=== PATIENT | female | born 1955 | race Caucasian/White ===

== ENCOUNTER → 2017-01-18 | Outpatient (CLI) | payer BC ==
[~2017-01-18] MED LIST: CALC500C70 PO; MULTCHW PO; [UNRECOGNIZED DRUG - CODE] PO
[2017-01-18 10:38] LABS: BASO % 0.8 %; BASO ABS # 0.04 K/uL (0-0.2); COMPLETE YES; EOS % 2.5 %; HEMATOCRIT 38.1 % (37-47); IG% 0.2 %; LYMPH % 29.5 %; LYMPH ABS # 1.44 K/uL (1.2-3.4); MEAN CELL VOLUME 86.8 fL (80-100); MEAN CORPUSCULAR HEMOGLOBIN 28.7 pg (25-34); MEAN CORPUSCULAR HGB CONC 33.1 g/dl (32-36); MONO % 8.2 %; NEUT % 58.8 %; PLATELET COUNT 205 K/uL (130-400); RED BLOOD COUNT 4.39 M/uL (4.2-5.4); WHITE BLOOD COUNT 4.88 K/uL (4.8-10.8)
[2017-01-18 10:45] LABS: ALT/SGPT 36 U/L (12-78); AST/SGOT 21 U/L (15-37); BLOOD UREA NITROGEN 16 mg/dl (7-18); BUN/CREATININE RATIO 23.8 (10-20); CALCIUM 8.3 mg/dl (8.5-10.1); CARBON DIOXIDE 27 mmol/L (21-32); CHLORIDE 108 mmol/L (98-107); CREATININE 0.67 mg/dl (0.60-1.20); GLUCOSE 91 mg/dl (70-99); POTASSIUM 4.2 mmol/L (3.5-5.1); SODIUM 140 mmol/L (136-145)
[2017-01-18 10:56] LABS: ALB/GLOB RATIO 0.9 (0.9-2); ALKALINE PHOSPHATASE 72 U/L (45-117); CHOLESTEROL 171 mg/dl (0-200); CHOLESTEROL/HDL RATIO 3.2; HDL CHOLESTEROL 53 mg/dl; LDL CHOLESTEROL CALCULATED 104 mg/dl; TRIGLYCERIDES 70 mg/dl (0-150); VERY LOW DENSITY LIPOPROT CALC 14 mg/dl
== END | disposition home or self-care (01) ==
LOC: C.LAB1850 09:25
PROVIDERS: ATTEND Internal Medicine Pulmonary Disease
DX: E78.5 Hyperlipidemia, unspecified (principal); I10 Essential (primary) hypertension; E03.9 Hypothyroidism, unspecified

== ENCOUNTER → 2017-02-06 | Outpatient (CLI) | payer BC ==
--- NOTE | 2017-02-07 07:42 | MAMMOGRAPHY REPORT ---
BILATERAL DIGITAL SCREENING MAMMOGRAM TOMOSYNTHESIS WITH CAD: 02/06/2017 CLINICAL HISTORY: Routine screening. Patient has no complaints. TECHNIQUE: Breast tomosynthesis in addition to standard 2D mammography was performed. Current study was also evaluated with a Computer Aided Detection (CAD) system. COMPARISON: Comparison is made to exams dated: 01/29/2016 mammogram, 01/19/2015 mammogram, 01/16/2014 mammogram, 01/08/2013 mammogram, 01/05/2012 mammogram, and 01/03/2011 mammogram - [facility]. BREAST COMPOSITION: The tissue of both breasts is heterogeneously dense, which may obscure small mas ses. FINDINGS: The parenchymal pattern is similar to prior mammograms. No suspicious mass, architectural distortion or cluster of microcalcifications is seen. IMPRESSION: ACR BI-RADS CATEGORY 1: NEGATIVE There is no mammographic evidence of malignancy. A 1 year screening mammogram is recommended. The pa tient will receive written notification of the results. Approximately 10% of breast cancers are not detected with mammography. A negative mammographic report should not delay biopsy if a clinically suggestive mass is present. Denisse Iyer M.D. ay/:02/06/2017 16:36:50 Welder Operator: Vannessa NIETO(Trang)(Adal)(BD), [facility] letter sent: Normal 1/2 BI-RADS Code: ACR BI-RADS Category 1: Negative
== END | disposition home or self-care (01) ==
LOC: C.MAMM 08:36
PROVIDERS: ATTEND Obstetrics & Gynecology
DX: Z12.31 Encounter for screening mammogram for malignant neoplasm of breast (principal)

== ENCOUNTER → 2017-02-06 | Outpatient (CLI) | payer BC | END | disposition home or self-care (01) | LOC: C.PAPS 11:54 | PROVIDERS: ATTEND Obstetrics & Gynecology | DX: Z01.419 Encounter for gynecological examination (general) (routine) without abnormal findings (principal) ==

== ENCOUNTER 2018-11-21 01:33 | Inpatient (IN) ==
[2018-11-21 02:01] LABS: Basophils # (auto) 0.04 K/uL (0-0.2); Basophils % (auto) 0.5 %; Eosinophils # (auto) 0.13 K/uL (0-0.5); Eosinophils % (auto) 1.8 %; Hematocrit (blood only) 35.6 % (37-47); Hemoglobin 12.5 g/dL (12.0-16.0); Immature Granulocytes # (auto) 0.01 K/uL (0.00-0.02); Immature Granulocytes % (auto) 0.1 %; Lymphocytes # (auto) 2.92 K/uL (1.2-3.4); Lymphocytes % (auto) 39.7 %; Mean Corpuscular Hemoglobin 29.1 pg (25-34); Mean Corpuscular Hgb Conc 35.1 g/dL (32-36); Mean Corpuscular Volume 82.8 fL (80-100); Mean Platelet Volume 9.6 fL (7.4-10.4); Monocytes # (auto) 0.66 K/uL (0.11-0.59); Neutrophils % (auto) 48.9 %; Platelet Count 333 K/uL (130-400); RDW Coefficient of Variation 13.7 % (11.5-14.5); RDW Standard Deviation 41.4 fL (36.4-46.3); White Blood Count 7.36 K/uL (4.8-10.8)
[2018-11-21 02:09] LABS: Alanine Aminotransferase 45 U/L (12-78); Albumin Level 3.8 gm/dl (3.4-5.0); Aspartate Aminotransferase 35 U/L (15-37); BUN Creatinine Ratio 17.2 (10-20); Blood Urea Nitrogen 11 mg/dl (7-18); Calcium 8.3 mg/dl (8.5-10.1); Carbon Dioxide 29 mmol/L (21-32); Chloride 94 mmol/L (98-107); Creatinine Clr Calc Pharmacy 56.7 ml/min; Est GFR (African American) 107.4; Est GFR (Non-African American) 92.7; Glucose 123 mg/dl (70-99); Potassium 3.6 mmol/L (3.5-5.1); Sodium 131 mmol/L (136-145)
--- NOTE | 2018-11-21 02:09 | Emergency Department Note ---
History of Present Illness General Chief complaint: Chest Pain Stated complaint: CHEST PAIN Source: patient Mode of arrival: ambulatory Limitations: no limitations History of Present Illness Maximum Pain Intensity: 3 This patient is a 63-year-old female who presents to the emergency department ambulatory complaining of chest pain. Patient states that she was watching TV 3 hours prior to arrival and started feeling a pressure in the center of her chest. She states it became worse and was persistent. She reports associated nausea and diaphoresis. She did not vomit. She states the pain was rated a 9/10. She states that her pain was somewhat worse with walking to the bathroom. She was given 3 nitroglycerin by EMS and 4 baby aspirin which improved her pain significantly. She states that she is symptom-free at this time. She denies any cardiac history and states she did have a stress test several years ago which was negative. She was recently started on medication for hypertension. She does report a family history of cardiac disease in her grandfather. Patient is not a smoker and exercises regularly. Home Medications Home Medications Medication Instructions Recorded Confirmed Type calcium citrate 250 mg 1 tab PO .take one po daily tab 10/26/18 11/21/18 History calcium-vitamin D3 200 unit tablet indapamide 1.25 mg tablet 1.25 mg PO DAILY #30 tab 10/26/18 11/21/18 History multivitamin tablet 1 tab PO DAILY 10/26/18 11/21/18 History Allergies Allergy/AdvReac Type Severity Reaction Status Date / Time Penicillins Allergy Intermediate RASH Verified 11/21/18 02:04 Past Med/Surg History Medical History Hypertension Surgical History History of colonoscopy History of cystoscopy with pyeloscopy History of hand surgery shaving of lesion Family History Other Colon cancer Heart disease Social History Preferred Language: Pashto Communication Ability: Effective Paranormal Investigator Required: No Beliefs That Will Affect Care: None Current Living Situation: Spouse Feels Safe at Home: Yes Smoking Status: Never smoker Second Hand Exposure: No ; Hx Alcohol Use: No Hx Substance Use: No Review of Systems A total of 10 systems reviewed and were otherwise negative Physical Exam Vital Signs Vital Signs - 24 hr 11/21/18 01:33 11/21/18 01:38 11/21/18 01:48 Temperature 36.7 C Temperature Source Oral Sepsis Recent Fever Within 48 Hours No Sepsis New/Unexplained Change in Mental Status No Sepsis Action Taken by Nursing No Action Required Pulse Rate 72 70 70 Pulse Rate from SpO2 Sensor 69 73 Pulse Rhythm Regular Pulse Strength Normal Respiratory Rate 17 13 15 Respiratory Effort / Characteristics Non-Labored Respiratory Depth Normal Respiratory Pattern Regular Blood Pressure 144/94 H 144/94 H Blood Pressure Mean 110 110 Blood Pressure Position Lying Pulse Oximetry 99 97 95 Oxygen Delivery Method Room Air 11/21/18 02:00 11/21/18 02:30 Temperature Temperature Source Sepsis Recent Fever Within 48 Hours Sepsis New/Unexplained Change in Mental Status Sepsis Action Taken by Nursing Pulse Rate 68 77 Pulse Rate from SpO2 Sensor 69 75 Pulse Rhythm Pulse Strength Respiratory Rate 16 11 L Respiratory Effort / Characteristics Respiratory Depth Respiratory Pattern Blood Pressure 134/87 136/89 Blood Pressure Mean 102 104 Blood Pressure Position Pulse Oximetry 97 99 Oxygen Delivery Method VITALS: Vitals are noted on the nurse's note and reviewed by myself. Vital signs stable. GENERAL: This is a 63-year-old female, in no acute distress, nondiaphoretic, well-developed well-nourished. SKIN: The skin was without rashes, erythema, edema, or bruising. HEAD: Normocephalic atraumatic. EARS: External auditory canals clear, tympanic membranes pearly de souza without erythema or effusion bilaterally. EYES: Pupils equal round and reactive to light and accommodation. MOUTH: Mucous membranes moist. Tonsils are not enlarged. Pharynx without erythema or exudate. NECK: Supple without nuchal rigidity. No lymphadenopathy. HEART: Regular rate and rhythm without murmurs gallops or rubs. LUNGS: Clear to auscultation bilaterally without wheezes, rales or rhonchi. No retractions or accessory muscle use. EXTREMITIES: No peripheral edema. NEURO: Patient was alert and oriented to person place and time. Course Consultations Consultation #1: Dr. Isaac Carreon [facility] hospitalist Administered Medications Discontinued Medications Nitroglycerin (Nitrostat) 0.4 mg SL NOW STA Stop: 11/21/18 02:56 Last Admin: 11/21/18 03:07 Dose: 0.4 mg Documented by: [id number] Medical Decision Making Differential Diagnosis Differential diagnosis includes acute coronary syndrome, pulmonary embolism, pneumothorax, pericarditis, myocarditis, endocarditis, anxiety, musculoskeletal pain, GERD, costochondritis, pneumonia, among others. Home Medications Current Medication List: was personally reviewed by me Laboratory Data Attestation: I reviewed the patient's lab results. Result diagrams: 11/21/18 01:39 11/21/18 01:39 Lab Results 11/21/18 11/21/18 11/21/18 Range/Units 01:39 01:39 02:00 WBC 7.36 (4.8-10.8) K/uL RBC 4.30 (4.2-5.4) M/uL Hgb 12.5 (12.0-16.0) g/dL Hct 35.6 L (37-47) % MCV 82.8 (80-100) fL MCH 29.1 (25-34) pg MCHC 35.1 (32-36) g/dL RDW Std Deviation 41.4 (36.4-46.3) fL RDW Coeff of Stephen 13.7 (11.5-14.5) % Plt Count 333 (130-400) K/uL MPV 9.6 (7.4-10.4) fL Immature Gran % (Auto) 0.1 % Neut % (Auto) 48.9 % Lymph % (Auto) 39.7 % [place] % (Auto) 9.0 % Eos % (Auto) 1.8 % Baso % (Auto) 0.5 % Immature Gran # (Auto) 0.01 (0.00-0.02) K/uL Neut # (Auto) 3.60 (1.4-6.5) K/uL Lymph # (Auto) 2.92 (1.2-3.4) K/uL [place] # (Auto) 0.66 H (0.11-0.59) K/uL Eos # (Auto) 0.13 (0-0.5) K/uL Baso # (Auto) 0.04 (0-0.2) K/uL Sodium 131 L (136-145) mmol/L Potassium 3.6 (3.5-5.1) mmol/L Chloride 94 L (98-107) mmol/L Carbon Dioxide 29 (21-32) mmol/L Anion Gap 8.0 (3-11) BUN 11 (7-18) mg/dl Creatinine 0.66 (0.6-1.2) mg/dl Est Cr Clr Drug Dosing 56.7 ml/min Est GFR ( Amer) 107.4 Est GFR (Non-Af Amer) 92.7 BUN/Creatinine Ratio 17.2 (10-20) Glucose 123 H (70-99) mg/dl Calcium 8.3 L (8.5-10.1) mg/dl Total Bilirubin 0.3 (0.2-1) mg/dl AST 35 (15-37) U/L ALT 45 (12-78) U/L Alkaline Phosphatase 79 (45-117) U/L POC Troponin I < 0.03 (0-0.045) ng/ml Troponin I < 0.015 (0-0.045) ng/ml Total Protein 7.7 (6.4-8.2) gm/dl Albumin 3.8 (3.4-5.0) gm/dl Globulin 3.9 (2.5-4.0) gm/dl Albumin/Globulin Ratio 1.0 (0.9-2) Imaging Data Attestation: I personally reviewed and interpreted this imaging study as follows: My Impression: CHEST X-RAY: No pneumothorax or pulmonary infiltrates. No cardiomegaly. ECG Data Attestation: I personally reviewed and interpreted this ECG as follows: Indication: chest pain Rate (beats per minute): 71 Rhythm: normal sinus Findings: + nonspecific-ST abn (Lateral) Comparison ECG Date: from (09/13/10) Change: the following changes noted (nonspecific ST changes now noted) Blood Pressure Blood Pressure Findings: Elevated blood pressure Blood Pressure Disposition: further management by hospitalist [facility] Narrative The patient is a 63-year-old female who presents today complaining of chest pain. Patient had an episode of chest pressure, diaphoresis and nausea. Symptoms resolved with nitroglycerin. Labs revealed no leukocytosis, anemia or concerning electrolyte abnormalities. Initial troponin negative. Chest x-ray unremarkable. Patient's HEART score calculated at a 5, moderate risk for MACE. Patient agreeable to admission/observation for further evaluation. [facility] hospitalist service consulted to evaluate the patient. The patient was independently evaluated by Dr. Brown, who agreed with my assessment and treatment plan. Impression & Plan Substernal chest pain Discharge Plan Visit Data *Final* Discharge Date/Time: 11/21/18 04:30 Chief Complaint: Chest Pain Stated Complaint: CHEST PAIN ED Provider: Angeles Brown ED Midlevel Provider: Gail Beauchamp Discharge Problem: Substernal chest pain Patient Disposition: Admitted As Inpatient Discharge Instructions Interventions: ED Discharge Assessment Last Done: 11/21/18 04:30
[2018-11-21 02:14] LABS: Alkaline Phosphatase 79 U/L (45-117); Bilirubin,Total 0.3 mg/dl (0.2-1); Globulin 3.9 gm/dl (2.5-4.0); Total Protein 7.7 gm/dl (6.4-8.2); Troponin I < 0.015 ng/ml (0-0.045)
[2018-11-21] MEDS ORDERED: NITROGLYCERIN SL 0.4 MG/TAB TAB SL STA (02:55)
--- NOTE | 2018-11-21 03:05 | History & Physical Report ---
Date of Service November 21, 2018 Assessment & Plan (1) Chest pain: Concerning story of acute onset chest heaviness, worse with exertion and relieved with Nitro. Risk factors include HTN. Troponin x 1 negative. [address]KG with subtle ST flattening V4-V6. Patient with CP 3/10 at present and some n ausea -Observation to medical floor with telemetry -Trend troponin q 8 hours x 3 sets -Check 2D echo -Nitroglycerine, morphine PRN -Zofran PRN -Repeat EKG -If elevated troponin on next draw would consider initiating heparin gtt and calling Cardiology consult Present on Admission?: Yes (2) Hypertension: Well controlled -Continue Indapamide F/E/N - Heplock. Electrolytes WNL. Heart healthy diet for now Ppx - Lovenox Code -Full Dispo - Obs to medical floor with telemetry Present on Admission?: Yes History of Present Illness Chief Complaint: chest pain Primary Care Provider: Donavan Peacock MD Tressa Rascon is a 63yo C female with history of well controlled HTN presenting with chest pain. She developed acute onset of substernal chest heaviness this evening while sitting on the couch. Pain 9/10 in severity at its worst. Associated with nausea, restlessness and diaphoresis. Non-radiating/non-pleuritic but did become worse when she walked around. EMS called - Nitro given with improvement in CP to 3/10. No history of prior No known history of CAD or AR. Had a stress test years ago which was negative. ER Course: Nitroglycerine Allergies Allergy/AdvReac Type Severity Reaction Status Date / Time Penicillins Allergy Intermediate RASH Verified 11/21/18 02:04 Home Medications Home Medications Medication Instructions Recorded Confirmed Type calcium citrate 250 mg 1 tab PO .take one po daily tab 10/26/18 11/21/18 History calcium-vitamin D3 200 unit tablet indapamide 1.25 mg tablet 1.25 mg PO DAILY #30 tab 10/26/18 11/21/18 History multivitamin tablet 1 tab PO DAILY 10/26/18 11/21/18 History Past Med/Surg History Medical History Hypertension Surgical History History of colonoscopy History of cystoscopy with pyeloscopy History of hand surgery shaving of lesion Family History Other Colon cancer Heart disease Social History Preferred Language: Burkinan Feels Safe at Home: Yes Smoking Status: Never smoker Review of Systems Review of Systems: All systems reviewed & are unremarkable except as noted in HPI & below +Nausea Physical Exam Physical Exam: General: patient resting comfortably, NAD, non-toxic in appearance, AA&O x 4, anxious Skin: warm, dry, intact, no rashes or lesions HEENT: NC/AT, PERRL, EOMI, anicteric sclera, conjunctiva without injection, external ear normal to inspection and nontender, nares patent, moist mucus membranes, dentition intact, no oropharyngeal lesions, neck supple, trachea midline, no LAD, no thyromegaly, no JVD Heart: +S1/S2, regular, no m/r/g, +Chest wall pain with palpation Lungs: equal air entry bilaterally, no rales/rhonchi/wheezes Abd: +BS, soft, NT/ND, no masses/organomegaly/ascites Ext: warm, 2+ pulses in UE/LE bilaterally, no clubbing/cyanosis or edema Neuro: nonfocal, patient AA&O x 4, speech intact, no facial droop, moving all extremities on command with equal strength 5/5 Results & Data Vital Signs (Past 12 Hours) Vital Signs Temp Pulse Resp BP Pulse Ox 11/21/18 02:30 77 11 L 136/89 99 11/21/18 02:00 68 16 134/87 97 11/21/18 01:48 70 15 95 11/21/18 01:38 70 13 144/94 H 97 11/21/18 01:33 36.7 C 72 17 144/94 H 99 Laboratory Results Lab Results 11/21/18 11/21/18 11/21/18 Range/Units 01:39 01:39 02:00 WBC 7.36 (4.8-10.8) K/uL RBC 4.30 (4.2-5.4) M/uL Hgb 12.5 (12.0-16.0) g/dL Hct 35.6 L (37-47) % MCV 82.8 (80-100) fL MCH 29.1 (25-34) pg MCHC 35.1 (32-36) g/dL RDW Std Deviation 41.4 (36.4-46.3) fL RDW Coeff of Stephen 13.7 (11.5-14.5) % Plt Count 333 (130-400) K/uL MPV 9.6 (7.4-10.4) fL Immature Gran % (Auto) 0.1 % Neut % (Auto) 48.9 % Lymph % (Auto) 39.7 % [place] % (Auto) 9.0 % Eos % (Auto) 1.8 % Baso % (Auto) 0.5 % Immature Gran # (Auto) 0.01 (0.00-0.02) K/uL Neut # (Auto) 3.60 (1.4-6.5) K/uL Lymph # (Auto) 2.92 (1.2-3.4) K/uL [place] # (Auto) 0.66 H (0.11-0.59) K/uL Eos # (Auto) 0.13 (0-0.5) K/uL Baso # (Auto) 0.04 (0-0.2) K/uL Sodium 131 L (136-145) mmol/L Potassium 3.6 (3.5-5.1) mmol/L Chloride 94 L (98-107) mmol/L Carbon Dioxide 29 (21-32) mmol/L Anion Gap 8.0 (3-11) BUN 11 (7-18) mg/dl Creatinine 0.66 (0.6-1.2) mg/dl Est Cr Clr Drug Dosing 56.7 ml/min Est GFR ( Amer) 107.4 Est GFR (Non-Af Amer) 92.7 BUN/Creatinine Ratio 17.2 (10-20) Glucose 123 H (70-99) mg/dl Calcium 8.3 L (8.5-10.1) mg/dl Total Bilirubin 0.3 (0.2-1) mg/dl AST 35 (15-37) U/L ALT 45 (12-78) U/L Alkaline Phosphatase 79 (45-117) U/L POC Troponin I < 0.03 (0-0.045) ng/ml Troponin I < 0.015 (0-0.045) ng/ml Total Protein 7.7 (6.4-8.2) gm/dl Albumin 3.8 (3.4-5.0) gm/dl Globulin 3.9 (2.5-4.0) gm/dl Albumin/Globulin Ratio 1.0 (0.9-2) Diagnostic Findings CXR with NAD ECG Additional Comments: EKG with NSR at 71, normal axis, KA=615, QRS=86, AEr=654, ST changes mild in V4-V6, I Code Status & VTE Plan Code Status FULL VTE Prophylaxis Plan VTE Prophylaxis will be ordered: Yes PG Care Time/CCT Total # of Minutes Spent Total Time Spent with Patient: Total time spent is greater than 50% in coordination of care (as documented) at patient's floor/unit and/or counseling patient: (1) Chest pain Chest pain type: unspecified Qualified Code(s): R07.9 - Chest pain, unspecified (2) Hypertension Hypertension type: essential hypertension Qualified Code(s): I10 - Essential (primary) hypertension
--- NOTE | 2018-11-21 03:36 | Emergency Department Note ---
ED Visit Note Patient seen and evaluated at bedside after discussion with the physician certified pathology assistant. Please refer to her note for additional details. Discussed with patient concern for potential cardiac etiology given symptoms and risk factors. Patient does relay family history in both grandfathers of cardiac etiology including sudden cardiac following heart attack in the early 60s. Patient has been concerned due to increased stress that she is taking care of her own mother. Discussed with them concerned due to EKG changes also. Patient is aware of all results, currently has no symptoms, and is in agreement with plan. .
[2018-11-21] MEDS ORDERED: NITROGLYCERIN SL 0.4 MG/TAB TAB SL PRN (05:01)
[2018-11-21] MEDS ORDERED: MoRPHine SULFATE 2 MG/ML CARP IV PRN (05:01)
[2018-11-21] MEDS ORDERED: ENOXAPARIN INJ 40 MG/0.4 ML SYR SQ SCH (05:01)
[2018-11-21] MEDS ORDERED: ONDANSETRON INJ 2 MG/ML 2 ML VIAL IV PRN ×2 (05:01→17:07)
[2018-11-21 05:44] LABS: Prothrombin Time 10.5 Seconds (9.0-12.0)
--- NOTE | 2018-11-21 07:03 | XRay Report ---
XR chest 1V portable CLINICAL HISTORY: Chest Pain dyspnea COMPARISON STUDY: No previous studies for comparison. FINDINGS: Platelike atelectasis left base. Lungs otherwise appear clear. Diaphragms are smooth. No si gnificant cardiac enlargement. IMPRESSION: Platelike atelectasis left base. Otherwise negative study. The above report was generated using voice recognition software. It may contain grammatical, syntax or spelling errors. Electronically signed by: Davidson Nguyen M.D. 11/21/2018 7:02 AM
[2018-11-21] MEDS: ACETAMINOPHEN 325 MG TAB PO PRN (07:29)
[2018-11-21] MEDS ORDERED: INDAPAMIDE 1.25 MG TAB PO SCH (09:00)
--- NOTE | 2018-11-21 12:25 | Family Medicine Progress Note ---
Date of Service November 21, 2018 Assessment & Plan (1) Chest pain: Ms. Rascon is a 63 year old female with a past medical history of hypertension who presented to [facility] emergency department due to acute onset of chest heaviness, associated with diaphoresis and relieved with Nitro. NSTEMI -initial troponin negative, repeat troponin this AM 1.3, continue to trend q8h -cardiology consulted, thank you for assistance with this patient -> tentatively scheduled for cardiac cath later today -chest pain resolved after administration of nitro, pt chest pain free this AM -EKG with non-specific T wave changes in lateral leads -ECHO already completed -> WNL, no RMWA -Nitroglycerin, morphine PRN -fasting lipid panel and HbA1c ordered for AM Hypertension -currently well controlled on home indapamide DVT Prophylaxis: Lovenox Code: Full Disposition: admitted to medical floor with telemetry (2) Hypertension: (3) NSTEMI (non-ST elevated myocardial infarction): Subjective See Dr. Gray's H&P for details on history and physical. Results & Data Vital Signs (Past 12 Hours) Vital Signs Temp Pulse Pulse Resp BP BP Pulse Ox 11/21/18 11:25 37.0 C 79 20 137/71 97 11/21/18 07:56 74 11/21/18 07:13 36.9 C 69 18 138/80 100 11/21/18 05:37 71 11/21/18 05:02 37.1 C 73 16 127/79 98 11/21/18 04:00 75 15 126/82 97 11/21/18 03:55 37.1 C 79 16 127/79 98 11/21/18 03:30 79 19 124/77 95 11/21/18 03:00 71 16 136/86 97 11/21/18 02:30 77 11 L 136/89 99 11/21/18 02:00 68 16 134/87 97 11/21/18 01:48 70 15 95 11/21/18 01:38 70 13 144/94 H 97 11/21/18 01:33 36.7 C 72 17 144/94 H 99 PG Care Time/CCT Total # of Minutes Spent Total Time Spent with Patient: Total time spent is greater than 50% in coordination of care (as documented) at patient's floor/unit and/or counseling patient: Resident Activity Tracking Resident Involvement: Resident Care Provided Care Provided: Adult Hospital Medicine (1) Chest pain Chest pain type: unspecified Qualified Code(s): R07.9 - Chest pain, unspecified (2) Hypertension Hypertension type: essential hypertension Qualified Code(s): I10 - Essential (primary) hypertension
[2018-11-21] MEDS ORDERED: NiCARDipine HCL INJ 2.5 MG/ML 10 ML AMP ONE (14:18)
[2018-11-21] MEDS ORDERED: fentaNYL citrate 100 MCG/2 ML VIAL ONE (14:18)
[2018-11-21] MEDS ORDERED: MIDAZOLAM HCL 1 MG/ML 2ML VIAL ONE ×2 (14:18→16:32)
[2018-11-21] MEDS ORDERED: HEPARIN (PORCINE) 1000 UNIT/ML 10 ML (CATH LAB USE ONLY) ONE (14:18)
[2018-11-21] MEDS ORDERED: NITROGLYCERIN/D5W 100MCG/ML 20ML SYR ONE (14:19)
--- NOTE | 2018-11-21 14:33 | Medical Student Progress Note ---
Date of Service November 21, 2018 Lisseth Bustillos is a 63 y/o F who presented to [facility] ED on November 21 after midnight complaining of substernal chest pressure and pain. She states that she first experienced chest pressure in the afternoon of November 20, which subsided within 30 minutes. Then, around 10:30 PM pn November 20, the sensation of pressure returned and lasted for several hours before Tressa called 911. At this time, Tressa describes the sensation as a constant, heavy pressure in the center of her chest. She denied any pain at the onset, but she states that she slowly developed a dull, non-pleuritic, and non-positional substernal pain without radiation to the shoulder or jaw. She also states that she experienced diaphoresis, and she denied any dyspnea or palpitations. Upon the onset of the dull pain and diaphoresis, Tressa called 911. 0.4 mg Nitroglycerin was administered by EMS, and Tressa endorses relief of her chest pain and pressure following the administration. She also notes that she developed a MORALES soon after administration of nitroglycerin. At [facility] ED, and ECG, CXR, and troponin were ordered. The ECG showed normal sinus rhythm and nonspecific T wave abnormalities in the inferior leads, as well as subtle ST flattening in V4-V6. The CXR did not show any cardiac enlargement, and the lungs were clear bilaterally. The troponin was negative. Tressa was then admitted for further monitoring. An echocardiogram revealed normal systolic and diastolic function, and a repeat troponin revealed a troponin of 1.30. She then had a cardiology consult and underwent a heart catheterization, which revealed a 99% mid RCA occlusion, and a 90% LAD occlusion. Two drug-eluting stents were placed without complications. Ticagrelor and ASA 81 mg dual therapy has been initiated and will be continued for 1 year. Overnight, Tressa became hypotensive (61/40), so she was administered a fluid bolus. She also experienced a 14 beat run of VT and ST changes. This morning, Tressa states that she is feeling very tired and that she slept poorly. She denies any chest pain or pressure, dyspnea, palpitations, abdominal pain, N/V, muscle weakness, dizziness, confusion, or fever. She does endorse a mild MORALES that was relieved with acetaminophen, and she states that she does not have much of an appetite. A repeat echocardiogram has been ordered for this morning. Physical Exam Constitutional: WD/WN, vitals as above no acute distress Respiratory: normal respiratory effort, lungs clear to auscultation Cardiovascular: RRR, no murmur, no edema Vessels: no carotid bruit Extremities: no edema Gastrointestinal (Abdomen): normal bowel sounds, soft, nontender, no hepatosplenomegaly Skin: no rashes, warm and dry Psychiatric: A+Ox3, euthymic affect Results & Data Laboratory Results Troponin: 4.7 (11/21 PM) to 3.84 (11/22 AM) Lipid panel: Total cholesterol-151, LDL-94, HDL-37, TG-102 blood glucose: 96 HbA1c: 5.7% Sodium: 128 Potassium: 3.3 Diagnostic Findings Medications Administered Acetaminophen (Tylenol) 650 mg PO Q4H PRN PRN Reason: pain/fever Stop: 12/21/18 05:00 Last Admin: 11/21/18 07:29 Dose: 650 mg Documented by: [id number] Indapamide (Lozol) 1.25 mg PO DAILY WALDEMAR Stop: 12/21/18 08:59 Last Admin: 11/21/18 07:30 Dose: 1.25 mg Documented by: [id number]
--- NOTE | 2018-11-21 15:02 | Pre Anesthesia Assessment ---
Date of Service November 21, 2018 Pre Sedation Assessment Vital Signs Temp Pulse Pulse Resp BP BP Pulse Ox 11/21/18 11:25 98.6 F 79 20 137/71 97 11/21/18 07:56 74 11/21/18 07:13 98.4 F 69 18 138/80 100 11/21/18 05:37 71 11/21/18 05:02 98.8 F 73 16 127/79 98 11/21/18 04:00 75 15 126/82 97 11/21/18 03:55 98.8 F 79 16 127/79 98 11/21/18 03:30 79 19 124/77 95 11/21/18 03:00 71 16 136/86 97 11/21/18 02:30 77 11 L 136/89 99 11/21/18 02:00 68 16 134/87 97 11/21/18 01:48 70 15 95 11/21/18 01:38 70 13 144/94 H 97 11/21/18 01:33 98.1 F 72 17 144/94 H 99 Cardiovascular RRR, no murmur, no edema Respiratory normal respiratory effort, lungs clear to auscultation Pre-Sedation Airway Assessment Smoking Status: Never smoker Hx Sleep Apnea: No Hx Difficult Intubation: No Short, Thick Neck: No Thyromental Distance: > or= 3.5 Finger Breadths Oral Cavity: + WNL Mallampati Class: III Procedure Planning Contraindications for Sedation: none Current Medications Reviewed: Yes Notes The planned sedation has been discussed with the patient. Informed Consent was obtained. I have identified the patient, determined the appropriateness of sedation and have assessed the patient immediately prior to the procedure. All medicine(s) and interventions are by my order.
--- NOTE | 2018-11-21 15:21 | Cardiology Consultation ---
Date of Consultation November 21, 2018 Assessment & Plan (1) NSTEMI (non-ST elevated myocardial infarction): 2. Hypertension Patient with classic anginal symptoms, EKG changes and elevated troponin consistent with ACS. Recommend further risk stratification with cardiac catheterization. Discussed risk, benefits, alternative procedure with patient and willing to proceed. Plan to perform via right radial artery. Further recommendations pending findings. Thank you for allowing us to participate in the care of this patient. Please contact with any questions. History of Present Illness Attending Physician: Chuyita Blanc MD History of Present Illness Mrs. Rascon is a very pleasant 63-year-old woman with a history of hyper admitted with acute onset chest pain found to have an NSTEMI. Cardiology consult for further management. Patient active at baseline. Was in usual state of health until approximately 1030 last night when started feeling unwell. Approximately an hour later developed chest pressure with associated diaphoresis, nausea. Around 12:30 AM called EMS. Had persistent pain for approximately 6 hours before finally relieved with aspirin, sublingual nitroglycerin. Has been chest pain-free since admission. No real similar symptoms previously. On admission initial EKG and subsequent EKG showed subtle lateral ST changes. Initial troponin was negative. Troponin this a.m. positive at 1.3. Family history: No family history of premature coronary disease. Social history: Denies tobacco, heavy alcohol. 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 one grandchild lives in [place]. Allergies: Penicillin Allergies Allergy/AdvReac Type Severity Reaction Status Date / Time Penicillins Allergy Intermediate RASH Verified 11/21/18 02:04 Home Medications Home Medications Medication Instructions Recorded Confirmed Type calcium citrate 250 mg 1 tab PO .take one po daily tab 10/26/18 11/21/18 History calcium-vitamin D3 200 unit tablet indapamide 1.25 mg tablet 1.25 mg PO DAILY #30 tab 10/26/18 11/21/18 History multivitamin tablet 1 tab PO DAILY 10/26/18 11/21/18 History Patient History Medical History Hypertension Surgical History History of colonoscopy History of cystoscopy with pyeloscopy History of hand surgery shaving of lesion Family History Other Colon cancer Heart disease Social History Preferred Language: Andorran Communication Ability: Effective Administrator Health Care Facility Required: No Beliefs That Will Affect Care: None Current Living Situation: Spouse Feels Safe at Home: Yes Smoking Status: Never smoker Second Hand Exposure: No ; Hx Alcohol Use: No Hx Substance Use: No Review of Systems Review of Systems: All systems reviewed & are unremarkable except as noted in HPI & below Physical Exam Physical Exam: General: Comfortable, no acute distress Eyes: Sclerae anicteric, extraocular movements intact HENT: Oropharynx clear mucous membranes moist Neck: Normal carotid upstrokes, no bruits. No JVD. Lungs: Clear to auscultation bilaterally, no rhonchi or wheezes Cardiac: Regular rate and rhythm, no murmurs, rubs or gallops. Vascular: 2+ radial, DP and PT pulses. No varicosities. Abdomen: Soft, nontender, nondistended, positive bowel sounds. Extremities: Well perfused, no peripheral edema Skin: No rashes or lesions. Neuro: Nonfocal Psych: Alert orient x3, normal affect and mood Results & Data Vital Signs (Past 12 Hours) Vital Signs Temp Pulse Pulse Resp BP BP Pulse Ox 11/21/18 11:25 98.6 F 79 20 137/71 97 11/21/18 07:56 74 11/21/18 07:13 98.4 F 69 18 138/80 100 11/21/18 05:37 71 11/21/18 05:02 98.8 F 73 16 127/79 98 11/21/18 04:00 75 15 126/82 97 11/21/18 03:55 98.8 F 79 16 127/79 98 11/21/18 03:30 79 19 124/77 95 PG Care Time/CCT Total # of Minutes Spent Total Time Spent with Patient: Total time spent is greater than 50% in coordination of care (as documented) at patient's floor/unit and/or counseling patient:
[2018-11-21] MEDS ORDERED: TICAGRELOR 90 MG TAB PO ONE (16:57)
--- NOTE | 2018-11-21 17:14 | Post Anesthesia Assessment ---
Date of Service November 21, 2018 Post Sedation Assessment Vital Signs Temp Pulse Pulse Resp BP BP Pulse Ox 11/21/18 11:25 98.6 F 79 20 137/71 97 11/21/18 07:56 74 11/21/18 07:13 98.4 F 69 18 138/80 100 11/21/18 05:37 71 11/21/18 05:02 98.8 F 73 16 127/79 98 11/21/18 04:00 75 15 126/82 97 11/21/18 03:55 98.8 F 79 16 127/79 98 11/21/18 03:30 79 19 124/77 95 11/21/18 03:00 71 16 136/86 97 11/21/18 02:30 77 11 L 136/89 99 11/21/18 02:00 68 16 134/87 97 11/21/18 01:48 70 15 95 11/21/18 01:38 70 13 144/94 H 97 11/21/18 01:33 98.1 F 72 17 144/94 H 99 Recovery Score Activity: Moves 4 extremities Respiration: Deep Breath/Cough Circulation: +/-20% PreAnes Value Consciousness: Fully Awake Oxygen Saturation: O2 needed for >90% Discharge Sedation Level of Care: Fast Track Phase II Post Sedation Plan On clinical assessment, the patient appears to have tolerated the sedation without complications. Patient is recovering as anticipated. Patient will continue to be monitored by nursing and may be discharged when sedation discharge criteria are met per below protocol. Upon Completions of procedure and additional 15 minutes continue every 5 minute vital signs and the P.A.R. score; then discharge to a Phase I or Fast Track to Phase II per the following guidelines: * Discharge Patient to appropriate Phase II area if PAR is 8 or greater or return to pre- procedure baseline. The post - procedure orders will be as directed. * If PAR score is less than 8 or not return to pre-procedure baseline then patient will follow Phase I monitoring till PAR is reached for Phase II. The Phase I may be done in procedure room or may call to secure a Phase I area. * If naloxone or flumazenil are used for reversal, hold in Phase I for continued monitoring from when last reversal dose was given for a minimum of 60 minutes or longer pending the nurse and/or physician discretion of patient condition before discharge to Phase II. Please call the Sedation Physician to re-evaluate and complete post-note for discharge to Phase II area. Do NOT discharge from procedure sedation or Phase 1 until post- sedation evaluation note is complete by procedure /sedation MD Sedation Discharge Instructions to be given to the patient at discharge to home.
--- NOTE | 2018-11-21 17:16 | Post Operative Brief Note ---
Cardiology Brief Post Op Date of Surgery November 21, 2018 Pre & Post Diagnosis Operation Date: 11/21/18 15:00 <No data on this case meets the specified criteria> Procedure -- Dairy Helper Alexandre Young MD News Intern Thierry Estimated Blood Loss 10 Findings Consistent with Post-Op Diagnosis Severe 2 vessel CAD -99% mid RCA -90% mid LAD at bifurcation of 1st diagonal. Successful PCI of mid RCA with 3.5 x 15 Alvaro DUDLEY (post-dilated with 4.0 NC). Successful PCI of proximal to mid LAD with 2.75 x 22 Alvaro DUDLEY (post-dilated with 3.5 NC) - POBA to ostium of 1st Diagonal Complications none Disposition Disposition: PCU
[2018-11-21] MEDS: SODIUM CHLORIDE 0.9% 1000ML 1,000 ML IV SCH ×2 (17:26→23:00)
[2018-11-21] MEDS ORDERED: SODIUM CHLORIDE 0.9% 1000ML 500 ML IV ONE (19:58)
[2018-11-21 20:32] LABS: Basophils # (auto) 0.02 K/uL (0-0.2); Basophils % (auto) 0.2 %; Eosinophils # (auto) 0.02 K/uL (0-0.5); Eosinophils % (auto) 0.2 %; Hematocrit (blood only) 34.3 % (37-47); Immature Granulocytes # (auto) 0.01 K/uL (0.00-0.02); Immature Granulocytes % (auto) 0.1 %; Lymphocytes # (auto) 1.26 K/uL (1.2-3.4); Lymphocytes % (auto) 14.2 %; Mean Corpuscular Volume 82.9 fL (80-100); Mean Platelet Volume 9.4 fL (7.4-10.4); Monocytes # (auto) 0.57 K/uL (0.11-0.59); Monocytes % (auto) 6.4 %; Neutrophils # (auto) 6.97 K/uL (1.4-6.5); Neutrophils % (auto) 78.9 %; Platelet Count 298 K/uL (130-400); RDW Coefficient of Variation 13.7 % (11.5-14.5); Red Blood Count 4.14 M/uL (4.2-5.4); White Blood Count 8.85 K/uL (4.8-10.8)
[2018-11-21 20:49] LABS: BUN Creatinine Ratio 11.2 (10-20); Calcium 8.2 mg/dl (8.5-10.1); Est GFR (African American) 88.3; Est GFR (Non-African American) 76.2; Potassium 3.1 mmol/L (3.5-5.1)
[2018-11-21 20:58] LABS: Troponin I 4.78 ng/ml (0-0.045)
[2018-11-21] MEDS ORDERED: POTASSIUM CHLORIDE 20 MEQ TABCR PO ONE (21:30)
--- NOTE | 2018-11-21 22:01 | Cardiac Catheterization ---
ACC Data: Latex Dipper Cardiac Status Clinical evaluation leading to the procedure CAD Presenation: Non STEMI Anginal Classification: CCS IV Heart Failure: No Cardiogenic Shock within 24 Hours: No Cardiac Arrest within 24 Hours: No Imaging Studies Past 6 Months: No Stress Studies Past 6 Months: No Diagnostic Physicians Name: Alexandre Young MD Status: Elective Closure Device Percutaneous Entry Location: Radial Closure Device: Radial Band Recommendations: PCI without planned CABG PCI Indication: PCI for high risk Non-DIONTE Lesion Segment Name: Mid RCA Culprit Artery: Yes Stenosis Prior to Rx (%): 99 Chronic Total Occlusion: No IVUS: No FFR: No Pre-Procedure ROSA MARIA Flow: 3 Previously Treated Lesion: No Lesion Complexity: Non-High/Non-C Lesion Length (mm): 12 Thrombus Present: Yes Bifurcation Lesion: No Guidewire Across Lesion: Stenosis Post-Procedure (%): 0 Post-Procedure ROSA MARIA Flow: 3 Devices(s) Deployed: Yes Yes Lesion #2 Segment Name: Mid LAD Culprit Artery: No Stenosis Prior to Rx (%): 90 Chronic Total Occlusion: No IVUS: Yes FFR: No Pre-Procedure ROSA MARIA Flow: 3 Previously Treated Lesion: No Lesion Complexity: High/C Lesion Length (mm): 20 Thrombus Present: No Bifurcation Lesion: Yes Guidewire Across Lesion: Yes Stenosis Post-Procedure (%): 0 Post-Procedure ROSA MARIA Flow: 3 Devices(s) Deployed: Yes Intraprocedure Events Significant Disection: No Perforation: No Cardiac Cath Procedure Full Procedure Date November 21, 2018 Pre-Procedure Diagnosis Pre-Procedure Diagnosis: Non STEMI AUC Score AUC Score: 8 Post-Procedure Diagnosis Post-Procedure Diagnosis: Severe CAD and Successful PCI Procedure(s) Performed Procedure(s) Performed: Coronary Angiography, Left Heart Cath, PTCA, Drug Eluting Stent and IVUS Basting Marker Alexandre Young MD Fuel Handler(s) Thierry Estimated Blood Loss Estimated Blood Loss: 15 Medication(s) Medication(s): Fentanyl, Heparin, Lidocaine 1%, Nicardipine, Nitroglycerin and Versed Medication(s): Ticagrelor Summary of Findings Indication: High risk NSTEMI Access: 6 Fr right radial artery Catheters: [place], JR4 guide, EBU 3.5 guide Findings: LM -luminal irregularities LAD -moderate caliber vessel, 90% mid segment stenosis just after takeoff of moderate caliber first diagonal. Mid to distal vessel tortuous and tapers as wraps around apex. First diagonal with 50 to 60% proximal disease. Circumflex -moderate caliber vessel, 20% ostial stenosis, diffuse 40% mid segment disease. Left PLB without significant disease. RCA -dominant large caliber vessel, 99% acute mid segment stenosis, 40 to 50% earlydistal stenosis. Small PDA, PLB's without significant disease. -- PCI of RCA-- Antithrombotic therapy: Heparin, ticagrelor Procedure: RCA cannulated with JR4 guide Tactical/Mobile Watch Officer 50 wire passed across lesion into distal vessel Mid RCA lesion predilated with 2.5 compliant balloon Dilated lesion stented with 3.5 x 15 mm Alvaro drug-eluting stent Stent post-dilated with 4.0 noncompliant balloon IC vasodilators administered for spasm Post procedure ROSA MARIA 3 flow, stent well expanded with minimal residual stenosis and no apparent cardiac complications. PCI of mid LAD Left main cannulated with EBU 3.5 guide Tactical/Mobile Watch Officer 50 passed across mid LAD stenosis into distal vessel Pro-water wire placed into first diagonal IVUS used to assess extent of disease in LAD, degree of calcification. Mildly calcified disease extending from proximal vessel past diagonal into mid segment. Mid LAD dilated with 2.5 compliant balloon Ostium of first diagonal dilated with 2.5 compliant balloon Mid LAD stented with 2.75 x 22 mm Alvaro drug-eluting stent First diagonal rewired with whisper wire and pro-water removed Mid LAD stent postdilated with 3.5 NC Ostium of first diagonal/stent struts predilated with 2.0 balloon IVUS confirmed well apposed and well expanded mid LAD stent IC vasodilators administered for spasm Post procedure ROSA MARIA 3 flow, stent well expanded. Residual stenosis in ostium of first diagonal but ROSA MARIA-3 flow. Arterial Closure: TR band Summary: 1. Severe multi-vessel coronary artery disease -99% acute mid RCA (culprit vessel). 90% mid LAD stenosis involving bifurcation with first diagonal 2. Normal intracardiac filling pressure 3. Successful PCI of mid RCA with single drug-eluting stent (3.5 x 15 mm Alvaro; postdilated with 4.0 NC). 4. Successful PCI of mid LAD with single drug-eluting stent (2.75 x 22 mm [place]; postdilated with 3.5 NC). --POBA of first diagonal ostium Recommendations: To PCU for continued monitoring Loaded with ticagrelor 180 mg in cath Continue dual-antiplatelet therapy for at least one year Continue statin, and ASCVD risk factor modification Consult cardiac Rehab Recommendations Recommendations: PCI without planned CABG Specimens Specimens: None Drains Drains: None Anesthesia Moderate Procedural Complication(s) None Disposition PCU
[2018-11-21] MEDS: TICAGRELOR 90 MG TAB PO SCH (23:00)
[2018-11-22 07:07] LABS: Basophils # (auto) 0.02 K/uL (0-0.2); Basophils % (auto) 0.3 %; Eosinophils # (auto) 0.07 K/uL (0-0.5); Hematocrit (blood only) 30.5 % (37-47); Hemoglobin 10.6 g/dL (12.0-16.0); Immature Granulocytes # (auto) 0.01 K/uL (0.00-0.02); Immature Granulocytes % (auto) 0.1 %; Lymphocytes # (auto) 1.47 K/uL (1.2-3.4); Lymphocytes % (auto) 20.4 %; Mean Corpuscular Hemoglobin 28.6 pg (25-34); Mean Corpuscular Hgb Conc 34.8 g/dL (32-36); Mean Corpuscular Volume 82.4 fL (80-100); Mean Platelet Volume 9.1 fL (7.4-10.4); Monocytes # (auto) 0.75 K/uL (0.11-0.59); Monocytes % (auto) 10.4 %; Neutrophils % (auto) 67.8 %; Platelet Count 292 K/uL (130-400); RDW Coefficient of Variation 13.7 % (11.5-14.5); RDW Standard Deviation 41.8 fL (36.4-46.3); White Blood Count 7.22 K/uL (4.8-10.8)
[2018-11-22] MEDS: ACETAMINOPHEN 325 MG TAB PO PRN (07:37)
[2018-11-22 07:46] LABS: BUN Creatinine Ratio 15.6 (10-20); Calcium 7.6 mg/dl (8.5-10.1); Creatinine Clr Calc Pharmacy 89.8 ml/min; Est GFR (African American) 113.4; Est GFR (Non-African American) 97.8; Potassium 3.3 mmol/L (3.5-5.1)
[2018-11-22 08:05] LABS: Estimated Average Glucose 117 mg/dl; Hemoglobin A1C 5.7 % (4.5-5.6)
--- NOTE | 2018-11-22 08:16 | Family Medicine Progress Note ---
Date of Service November 22, 2018 Assessment & Plan (1) NSTEMI (non-ST elevated myocardial infarction): Ms. Rascon is a 63 year old female with a past medical history of hypertension who presented to [facility] emergency department due to acute onset of chest heaviness, associated with diaphoresis and relieved with Nitro. She was found to have an NSTEMI. NSTEMI -troponin peaked at 4.78 and now downtrending -EKG on admission showed non-specific T wave changes in lateral leads -cardiology consulted, thank you for recommendations -> underwent cardiac cath on 11/21 with placement of 2 DUDLEY in mid RCA and mid LAD -> ticagrelor and aspirin initiated -> continue dual therapy for 1 year -> atorvastatin 80mg commenced -> cardiac rehab consulted -repeat ECHO ordered for this AM, ECHO prior to cardiac cath -> WNL, no RMWA -fasting lipid panel: Chol 151, LDL 94, HDL 37, TG 102 -HbA1c: 5.7% Hypertension -home indapamide discontinued in favor of lisinopril 5mg and 25mg of metoprolol succinate daily Hyponatremia -likely related to home indapamide, this was discontinued -received IVF overnight and this AM -will recheck BMP at noon and tomorrow AM Hypokalemia -potassium 3.3 today, repleted with 40 mEq of PO potassium, will recheck BMP at noon and again tomorrow DVT Prophylaxis: Lovenox SQ daily Code: Full Disposition: remains on telemetry. Anticipate discharge tomorrow. (2) Hypertension: Supervising Physician Co-Signing Physician Notes Resident Physician Supervision Note: I independently interviewed and examined the patient and verified the omer history and physical, reviewed labs and image studies, discussed the case with the resident Dr. Seaman and agree with the findings and care plan. Subjective Ms. Rascon reports she feels well this morning, but does note some fatigue. She denies any chest pain, nausea, vomiting, shortness of breath or leg swelling. She denies any pain or problems with her catheterization site. Overnight, she had a hypotensive episode where her blood pressure dropped to the 70s/40s, and she felt unwell. She was treated with a 500 mL bolus of normal saline and quickly returned to baseline. This was felt to be a vasovagal episode. She also, on a separate occasion, had a 14 beat run of v tach whilst asleep. Review of Systems Constitutional: + fatigue; no fever and no chills Respiratory: no cough and no dyspnea Cardiovascular: no chest pain, no palpitations, no syncope, no edema and no calf pain Gastrointestinal: no abdominal pain, no nausea and no vomiting Physical Exam Constitutional: WD/WN, vitals as above Respiratory: normal respiratory effort, lungs clear to auscultation Cardiovascular: RRR, no murmur, no edema Gastrointestinal (Abdomen): normal bowel sounds, soft, nontender, no hepatosplenomegaly Skin: right radial cath site w/dressing Results & Data Vital Signs (Past 12 Hours) Vital Signs Temp Pulse Resp BP Pulse Ox 11/22/18 07:44 36.7 C 74 18 130/82 97 11/22/18 04:08 36.9 C 73 16 110/64 95 11/22/18 01:02 72 117/77 98 11/21/18 23:59 36.8 C 67 16 107/68 98 11/21/18 20:24 70 122/65 PG Care Time/CCT Total # of Minutes Spent Total Time Spent with Patient: Total time spent is greater than 50% in coordination of care (as documented) at patient's floor/unit and/or counseling patient: Resident Activity Tracking Resident Involvement: Resident Care Provided Care Provided: Adult Hospital Medicine (1) Hypertension Hypertension type: essential hypertension Qualified Code(s): I10 - Essential (primary) hypertension
[2018-11-22] MEDS: SODIUM CHLORIDE 0.9% 1000ML 1,000 ML IV SCH (08:28)
[2018-11-22] MEDS: LISINOPRIL 5 MG TAB PO SCH (08:29)
[2018-11-22] MEDS: ENOXAPARIN INJ 40 MG/0.4 ML SYR SQ SCH (08:30)
[2018-11-22] MEDS: ATORVASTATIN 40 MG TAB PO SCH (08:30)
[2018-11-22] MEDS: ASPIRIN 81 MG ECTAB PO SCH (08:32)
[2018-11-22] MEDS: TICAGRELOR 90 MG TAB PO SCH ×2 (08:32→19:50)
[2018-11-22] MEDS: METOPROLOL SUCC 25MG EXT REL TAB PO SCH (08:33)
[2018-11-22] MEDS ORDERED: POTASSIUM CHLORIDE 20 MEQ TABCR PO ONE (09:00)
--- NOTE | 2018-11-22 11:49 | Cardiology Progress Note ---
Date of Service November 22, 2018 Assessment & Plan (1) NSTEMI (non-ST elevated myocardial infarction): 2. Multivessel coronary diseasepost PCI with DUDLEY to mid RCA, mid LAD 3. Hypertension 4. Nonsustained VT 5. Hyponatremia 6. Anemia Remains chest pain free. Episode of hypotension/nausea likely secondary to vagal event. No access site complications. -- Continue DAPT with ASA/Ticagrelor -- Echo pending. -- Up titrate beta-vesna as BP allows -- replete electrolytes -- indapamide on hold, additional IV fluids for hyponatremia -- continue high-intensity statin -- Likely discharge tomorrow with follow-up with me in 2 weeks. Subjective Fatigued this morning. No chest pain. Breathing comfortably. Overnight had an episode of hypotension, nausea. Responded to IV fluids. BPs stable this morning. Tele reviewed -- episode of NSVT ~ 12 beats overnight. Review of Systems Review of Systems: All systems reviewed & are unremarkable except as noted in HPI & below Physical Exam Physical Exam: General: Comfortable, no acute distress HEENT: Sclerae anicteric, mucous membranes moist Lungs: Clear to auscultation bilaterally, no rhonchi or wheezes Cardiac: Regular rate and rhythm, no murmurs. No JVD. Abdomen: Soft, nontender, nondistended, positive bowel sounds. Extremities: Warm, well perfused, no edema. Right radial artery access site with no ecchymosis, hematoma. Distal pulse and sensation intact. Skin: No rashes or lesions. Neuro: Nonfocal Psych: Alert orient x3, normal affect and mood Results & Data Vital Signs (Past 12 Hours) Vital Signs Temp Pulse Pulse Resp BP Pulse Ox 11/22/18 10:49 98.2 F 78 18 133/79 95 11/22/18 08:00 74 11/22/18 07:44 98.1 F 74 18 130/82 97 11/22/18 04:08 98.4 F 73 16 110/64 95 11/22/18 01:02 72 117/77 98 11/21/18 23:59 98.2 F 67 16 107/68 98 PG Care Time/CCT Total # of Minutes Spent Total Time Spent with Patient: Total time spent is greater than 50% in coordination of care (as documented) at patient's floor/unit and/or counseling patient:
[2018-11-22 12:47] LABS: BUN Creatinine Ratio 16.6 (10-20); Creatinine Clr Calc Pharmacy 104.8 ml/min; Est GFR (African American) 119.3; Est GFR (Non-African American) 102.9; Potassium 3.8 mmol/L (3.5-5.1)
--- NOTE | 2018-11-22 16:08 | Medical Student Progress Note ---
Date of Service November 22, 2018 Assessment & Plan (1) NSTEMI (non-ST elevated myocardial infarction): Following an elevated troponin. Tressa had a cardiology consult. She then underwent a heart catheterization, which revealed 99% occlusion of the mid RCA and 90% occlusion of the mid LAD. Two DUDLEY were placed without complications. -dual therapy with ASA and Ticagrelor started and will be continued for 1 year -lipid panel ordered and reviewed -Atorvastatin 80 mg prescribed Present on Admission?: Yes (2) Hypertension: -Indapamide discontinued -daily lisinopril 5 mg and Metoprol succinate 25 mg initiated -discussed low sodium diet Hypertension type: essential hypertension Qualified Code(s): I10 - Essential (primary) hypertension (3) Hypokalemia: -improved from 3.3 to 3.8 between 6:00 AM and 12:00 PM -recheck 8 AM (4) Hyponatremia: -mild improvement from 128 to 129 between 6:00 AM and 12:00 PM -received IVF -recheck 11/23 AM Subjective Tressa states that she feels fatigued today, and she admits to poor sleep quality. However, she denies any chest pain or pressure, dyspnea, lower extremity edema, palpitations, dizziness, muscle weakness, abdominal pain, or N/V. She does admit to a mild MORALES that was reduced by acetaminophen. During the night, Tressa experienced a hypotensive episode with her lowest recorded BP being 61/40. She was given a 500 ml fluid bolus to raise her BP. She also had a a 14 beat run of VT during the night. Review of Systems Review of Systems: All systems reviewed & are unremarkable except as noted in HPI & below Physical Exam Constitutional: WD/WN, vitals as above no acute distress Respiratory: normal respiratory effort, lungs clear to auscultation Cardiovascular: RRR, no murmur, no edema Heart Sounds: normal S1 and normal S2 Vessels: no JVD and no carotid bruit Extremities: no edema Skin: no rashes, warm and dry Psychiatric: A+Ox3, euthymic affect Results & Data Vital Signs (Past 12 Hours) Vital Signs Temp Pulse Pulse Resp BP Pulse Ox 11/22/18 15:34 36.6 C 59 L 18 145/78 H 95 11/22/18 10:49 36.8 C 78 18 133/79 95 11/22/18 08:00 74 11/22/18 07:44 36.7 C 74 18 130/82 97 11/22/18 04:08 36.9 C 73 16 110/64 95 Laboratory Results Sodium= 129 Potassium= 3.8 Creatinine= 0.48 Calcium= 8.0 blood glucose= 105 HbA1c= 5.7% Troponin= 3.840 Lipid Panel: total cholesterol= 151, TG= 102, LDL= 94, HDL= 37, VLDL= 20
[2018-11-23 06:18] LABS: Basophils # (auto) 0.02 K/uL (0-0.2); Basophils % (auto) 0.4 %; Eosinophils # (auto) 0.08 K/uL (0-0.5); Eosinophils % (auto) 1.4 %; Hemoglobin 10.6 g/dL (12.0-16.0); Immature Granulocytes # (auto) 0.02 K/uL (0.00-0.02); Immature Granulocytes % (auto) 0.4 %; Lymphocytes # (auto) 1.02 K/uL (1.2-3.4); Lymphocytes % (auto) 17.9 %; Mean Corpuscular Hemoglobin 28.5 pg (25-34); Mean Corpuscular Hgb Conc 34.2 g/dL (32-36); Mean Corpuscular Volume 83.3 fL (80-100); Mean Platelet Volume 9.1 fL (7.4-10.4); Monocytes % (auto) 12.3 %; Neutrophils # (auto) 3.86 K/uL (1.4-6.5); Neutrophils % (auto) 67.6 %; Platelet Count 254 K/uL (130-400); RDW Coefficient of Variation 13.7 % (11.5-14.5); RDW Standard Deviation 41.8 fL (36.4-46.3); Red Blood Count 3.72 M/uL (4.2-5.4)
[2018-11-23 07:01] LABS: BUN Creatinine Ratio 19.7 (10-20); Calcium 7.8 mg/dl (8.5-10.1); Creatinine Clr Calc Pharmacy 91.5 ml/min; Est GFR (African American) 114.1; Est GFR (Non-African American) 98.4; Potassium 3.9 mmol/L (3.5-5.1)
[2018-11-23] MEDS: METOPROLOL SUCC 25MG EXT REL TAB PO SCH (08:13)
[2018-11-23] MEDS: ATORVASTATIN 40 MG TAB PO SCH (08:13)
[2018-11-23] MEDS: TICAGRELOR 90 MG TAB PO SCH (08:13)
[2018-11-23] MEDS: ENOXAPARIN INJ 40 MG/0.4 ML SYR SQ SCH (08:13)
[2018-11-23] MEDS: LISINOPRIL 5 MG TAB PO SCH (08:13)
[2018-11-23] MEDS: ASPIRIN 81 MG ECTAB PO SCH (08:13)
--- NOTE | 2018-11-23 08:28 | Medical Student Progress Note ---
Date of Service November 23, 2018 Assessment & Plan (1) NSTEMI (non-ST elevated myocardial infarction): Tressa underwent a heart catheterization, which revealed 99% occlusion of the mid RCA and 90% occlusion of the mid LAD. Two DUDLEY were placed without complications, and she is scheduled for discharge today. -daily dual therapy with ASA (81 mg) and Ticagrelor (90 mg) started and will be continued for 1 year -lipid panel reviewed -Atorvastatin 80 mg prescribed -repeat Echo pending -cardiac rehabilitation discussed, follow up with Dr. Young in 2 weeks (2) Hypertension: -Indapamide discontinued -daily lisinopril 5 mg and Metoprol succinate 25 mg initiated -discussed low sodium diet Hypertension type: essential hypertension Qualified Code(s): I10 - Essential (primary) hypertension (3) Hypokalemia: -no longer hypokalemia, now at 3.9 -potassium chloride discontinued (11/22 AM) (4) Hyponatremia: -improved from 129 to 131 overnight -IVF discontinued (11/21 PM) DVT Prophylaxis: Enoxaparin sodium SQ daily Code: Full Disposition: Discharge today Subjective Tressa is a 63 y/o F who is 2 days s/p PCI with DUDLEY placement in the mid RCA and mid LAD. This morning, Tressa states that she is feeling significantly better than yesterday and that she slept very well. She states that her energy level has increased and her appetite has returned. She notes that she has walked around without any discomfort. She denies any chest pain or pressure, palpitations, dyspnea, pleuritic pain, or peripheral edema. She also denies any MORALES, dizziness or lightheadedness, muscle weakness, abdominal pain, or pain surrounding the catheterization access point. She also states that the back pain that she was experiencing yesterday has gone away, which she attributes to being able to move around. Review of Systems Constitutional: + increased appetite; no fatigue, no weakness, no anorexia and no insomnia Respiratory: no chest congestion, no dyspnea, no pain on inspiration and no pain with cough Cardiovascular: no chest pain, no dyspnea, no orthopnea, no palpitations, no lightheadedness and no edema Gastrointestinal: as per Subjective / HPI Musculoskeletal: as per Subjective / HPI Physical Exam Constitutional: WD/WN, vitals as above no acute distress Respiratory: normal respiratory effort, lungs clear to auscultation Cardiovascular: RRR, no murmur, no edema Heart Sounds: normal S1 and normal S2 Vessels: no JVD and no carotid bruit Extremities: no edema Skin: no rashes, warm and dry Results & Data Vital Signs (Past 12 Hours) Vital Signs Temp Pulse Resp BP Pulse Ox 11/23/18 07:14 36.6 C 74 18 115/71 95 11/23/18 03:36 36.5 C 71 18 110/69 97 11/22/18 23:54 36.6 C 73 20 112/70 96 Laboratory Results RBCs= 3.72 Hgb= 10.6 Hct= 31.0 Sodium= 131 Calcium= 7.8 Potassium= 3.9 glucose= 88 HbA1c= 5.7% TG= 102 Cholesterol= 151 LDL=94 VLDL=20 HDL=37
--- NOTE | 2018-11-23 15:16 | Discharge Summary ---
Date of Service November 23, 2018 Admission HPI Per Admitting Provider Tressa Rascon is a 63yo C female with history of well controlled HTN presenting with chest pain. She developed acute onset of substernal chest heaviness this evening while sitting on the couch. Pain 9/10 in severity at its worst. Associated with nausea, restlessness and diaphoresis. Non-radiating/non-pleuritic but did become worse when she walked around. EMS called - Nitro given with improvement in CP to 3/10. No history of prior No known history of CAD or TX. Had a stress test years ago which was negative. ER Course: Nitroglycerine Principal Diagnosis NSTEMI Discharge Exam Constitutional WD/WN, vitals as above Respiratory normal respiratory effort, lungs clear to auscultation Cardiovascular RRR, no murmur, no edema Gastrointestinal (Abdomen) normal bowel sounds, soft, nontender, no hepatosplenomegaly Discharge Data Allergies Allergy/AdvReac Type Severity Reaction Status Date / Time Penicillins Allergy Intermediate RASH Verified 11/21/18 02:04 Consultations 11/21/18 02:28 ED Decision to Admit Stat 11/21/18 11:49 Consult Cardiology Routine 11/21/18 17:10 Consult Cardiac Rehabilitation Routine Procedures Performed Operation Date: 11/21/18 15:00 Actual Procedures s Cineradiography w/Routine Exam - Jae Young MD p Cath, Left with Cors and Vent - Jae Young MD s Drug Eluting Stent SGl Vessel - Jae Young MD s Drug Eluting Stent each ADDTL Vessel - Jae Young MD s POBA SGL Vessel - Jae Young MD s IVUS Coronary Single Vessel - Jae Young MD Ordered Studies 11/21/18 15:02 CL Cath Imgs for PACS use only Routine 11/23/18 11:39 CL IVUS Coronary Single Vessel Routine Hospital Course (1) NSTEMI (non-ST elevated myocardial infarction): Ms. Rascon is a 63 year old female with a past medical history of hypertension who presented to [facility] emergency department due to acute onset of chest heaviness, associated with diaphoresis and relieved with Nitro. She was found to have an NSTEMI. NSTEMI -troponin peaked at 4.78 and now downtrending -EKG on admission showed non-specific T wave changes in lateral leads -cardiology consulted, -> underwent cardiac cath on 11/21 with placement of 2 DUDLEY in mid RCA and mid LAD -> ticagrelor and aspirin initiated -> continue dual therapy for 1 year -> atorvastatin 80mg commenced -> to continue metoprolol. trae added. -> cardiac rehab consulted -Echo -> WNL, no RMWA -fasting lipid panel: Chol 151, LDL 94, HDL 37, TG 102 -HbA1c: 5.7% Hypertension -home indapamide discontinued in favor of lisinopril 5mg and 25mg of metoprolol succinate daily Hyponatremia -sec to indapamide, this was discontinued -last bmp with sodium of 131 - improved from 128 Hypokalemia -Secondary to being on indapamide. Replaced. Indapamide d/alvina. (2) Hypertension: (3) Hyponatremia: (4) Hypokalemia: Total Time Total Time Spent Total Time Spent (In Minutes): 35 min Discharge Plan Discharge Items Patient Disposition: Home - Self-Care Reason For Visit: CHEST PAIN Discharge Diagnosis: NSTEMI Discharge Goals: Improve disease control Activity: Resume your previous activity Non-emergency contact: Primary Care Provider and City Director Call non-emergency contact if: you have any medication questions and your symptoms worsen Follow-up/Referrals: Donavan Peacock MD [Primary Care Provider] - 12/04/18 9:20 am (Please, follow up at Dr. Peacock's office with his syrup mixer assistant, Chelsea Rodriguez PA-C, on MondayDecember 04 at 9:20 am. *If you need to change this appointment, call their office at [phone].) Jae Young MD [Physician] - 12/06/18 10:00 am (Please, follow up at [facility] Office with Dr. Sae Young on Dec 06 at 10:00 am. *The office is located in [address] of [facility]. This is the big building [facility]. If you need to change this appointment, call the office at [phone].) Diet: Heart Healthy and Low Sodium (2gm) Addtl Provider Instructions: Follow up with Dr. Young - as scheduled on 12/06 ACTIVITY RECOMMENDATIONS: It is common to feel weak and fatigue for a few days. * Do not drive or operate any motorized equipment for the next three days. * Limit stair usage (2 or 3 trips a day only) for the next three days. * Do not lift anything heavier than 10 pounds for the next three days. * Do not engage in vigorous exercise or any sports for the next five days. * You may shower the day after your procedure, but do not immerse the area for three days. Cleanse the site gently with soap and water. SPECIAL CARE INSTRUCTIONS: * You may replace the pressure dressing or band-aid the morning after the procedure. * After your procedure, it is normal to have a small bruise or small lump at the site. Examine your site daily for any change in the bruise or lump, redness, swelling, drainage or numbness. Notify your doctor if any change. BLEEDING: * If there is a small amount of bleeding at the site, lie down and apply firm pressure with a clean cloth for ten minutes. When the bleeding stops, lie quietly keeping the procedure limb straight for six hours. Notify your doctor as soon as possible. * If the bleeding does not stop after ten minutes or if there is a large amount of bleeding or spurting, call 911 immediately. Continue to lie down and hold firm pressure until help arrives. SKIN IRRITATION: * You may experience some redness and/or swelling in the area where radiation was administered. If any skin irritation occurs, please contact your family physician. FOLLOW UP VISIT: Keep any scheduled doctor appointments. Prescriptions: New atorvastatin 40 mg Tablet 80 mg PO QAM Qty: 30 RF: 0 aspirin [Ecotrin Low Strength] 81 mg Tablet,Delayed Release (Dr/Ec) 81 mg PO QAM Qty: 30 RF: 0 lisinopril [Zestril] 5 mg Tablet 5 mg PO QAM Qty: 30 RF: 0 metoprolol succinate 25 mg Tablet Extended Release 24 Hr 25 mg PO QAM Qty: 30 RF: 0 Brilinta 90 mg Tablet 90 mg PO BID Qty: 60 RF: 0 Continued multivitamin [Multiple Vitamins] tablet 1 tab PO DAILY RF: 0 calcium citrate-vitamin D3 250 mg calcium- 200 unit tablet 1 tab PO .take one po daily RF: 0 Discontinued indapamide 1.25 mg tablet 1.25 mg PO DAILY Qty: 30 RF: 0 Stand-Alone Forms: Call Back Authorization, [facility] Discharge Orders: Discharge Order (Routine); Ordered 11/23/18 Ordered By: Chuyita Blanc Admission Data Admit Date/Time: 11/21/18 16:27 Attending Provider: Chuyita Blanc Admit Provider: Radha Gray Primary Care Provider: Donavan Peacock Other Providers: Radha Gray ; Claude Díaz Service: Telemetry Other Interventions: Discharge Summary Assessment (RN) Last Done: 11/23/18 11:54 DC Date/Time DO NOT enter until pt leaves facility: 11/23/18 13:45
--- NOTE | 2018-11-23 21:58 | Cardiology Progress Note ---
Date of Service November 23, 2018 Assessment & Plan (1) NSTEMI (non-ST elevated myocardial infarction): 2. Multivessel coronary diseasepost PCI with DUDLEY to mid RCA, mid LAD 3. Hypertension 4. Nonsustained VT 5. Hyponatremia 6. Anemia Feeling well today. Chest pain-free. Electrolytes improving Telemetry unremarkable From a cardiac standpoint okay for discharge today. -- Continue DAPT with ASA/Ticagrelor --Home on beta-vesna, DAVID and high intensity statin --Follow-up with me in 2 weeks. Subjective Feeling well today. No chest pain. No other new concerns. Telemetry reviewedno events. Physical Exam Physical Exam: General: Comfortable, no acute distress HEENT: Sclerae anicteric, mucous membranes moist Lungs: Clear to auscultation bilaterally, no rhonchi or wheezes Cardiac: Regular rate and rhythm, no murmurs. No JVD. Abdomen: Soft, nontender, nondistended, positive bowel sounds. Extremities: Warm, well perfused, no edema. Right radial artery access site with ecchymosis, no hematoma. Distal pulse and sensation intact. Skin: No rashes or lesions. Neuro: Nonfocal Psych: Alert orient x3, normal affect and mood Results & Data Vital Signs (Past 12 Hours) Vital Signs Temp Pulse Resp BP BP Pulse Ox 11/23/18 11:54 97.7 F 77 18 112/70 139/82 97 11/23/18 10:54 97.7 F 77 18 112/70 97 PG Care Time/CCT Total # of Minutes Spent Total Time Spent with Patient: Total time spent is greater than 50% in coordination of care (as documented) at patient's floor/unit and/or counseling patient:
== END 2018-11-23 13:45 | disposition home or self-care (01) | DRG 247 ==
LOC: 2N 01:33 → ED 01:33 → SUATTDRO 02:55 → 2N 04:30 → 2S 17:13
DX: E87.1 Hypo-osmolality and hyponatremia; E87.6 Hypokalemia; Z88.0 Allergy status to penicillin; I21.4 Non-ST elevation (NSTEMI) myocardial infarction; Z80.0 Family history of malignant neoplasm of digestive organs; D64.9 Anemia, unspecified; I10 Essential (primary) hypertension; Z82.49 Family history of ischemic heart disease and other diseases of the circulatory system